=== PATIENT | male | born 1990 | race Caucasian/White ===

== ENCOUNTER 2020-12-31 19:49 | Emergency (ER) | payer OTHER, SELFPAY ==
[2020-12-31] VITALS (16 sets, daily range): BP systolic 121–159; BP diastolic 68–88; PULSE 75–107; RESP 10–25; TEMP 36.3; O2SAT 96–98
--- NOTE | 2020-12-31 19:45 | RT.EKG_ITS ---
APPROVED REPORT Exam: Resting ECG Patient Location: E HR:95 bpm ECG Measurements Heart Rate 95 AXIS MA 151 P 68 QRSd 101 QRS 84 QT 336 T 28 QTc 423 Conclusion Sinus rhythm...normal P axis, V-rate 60- 99 Normal Intervals Normal [place] Normal Electrocardiogram
[2020-12-31 20:28] LABS: Abs Immature Grans 0.02 10^3/uL (0.0-0.06); Absolute Basophil Count 0.05 10^3/uL (0.0-0.2); Absolute Eosinophil Count 0.02 10^3/uL (0.0-0.7); Absolute Lymphocyte Count 1.77 10^3/uL (1.2-3.4); Absolute Monocyte Count 0.72 10^3/uL (0.1-0.8); Absolute Neutrophil Count 4.17 10^3/uL (1.2-6.7); Basophils % 0.7; Eosinophils % 0.3; HCT 41.9 % (40.0-50.0); Immature Grans % 0.3; Lymphocytes % 26.2; MCH 31.7 pg (27.0-33.0); MCHC 35.8 % (32.0-36.0); MCV 88.6 fL (80-95); MPV 9.8 fL (8.0-11.0); Monocytes % 10.7; Neutrophils % 61.8; Nucleated RBC 0 %; Platelet Count 229 10^3/uL (130-400); RBC 4.73 10^6/uL (4.36-5.78); RDW 11.5 % (11.8-14.1); WBC 6.75 10^3/uL (4.4-10.8)
--- NOTE | 2020-12-31 20:32 | ED.GENADUL_ITS ---
Discharge Plan Disposition Patient Disposition: HOME Condition: Good Discharge Details Clinical Impression: Palpitations, Hypokalemia ED Provider: Laurent Johnson Home Meds and New Rx's Prescriptions: No Action No Known Home Meds RF: 0 Discharge Instructions Instructions: Heart Palpitations (ED), Hypokalemia (ED) Additional Instructions: You will receive a phone call from respiratory therapy for an appointment as to when to come in to have heart monitor placed. We will have you follow-up with primary care in 3 to 4 weeks after the heart monitor has been turned in and read. Care management will reach out to you to help arrange for primary care follow-up. Return to ED if you develop chest pain, fainting, shortness of breath, prolonged palpitations that do not resolve, other concerns. Referrals: Care Management [Provider Group] Medical Decision Making Patient presenting with palpitations/fast heart rate. When initially placed on monitor was sinus tachycardia at 110. Subsequently normal sinus rhythm on monitor. He is also normal sinus rhythm on EKG. Exam is unremarkable. Certainly sounds like possibility of SVT. For tonight we will check laboratory studies including TSH. If normal will refer to care management for primary care assignment and order outpatient heart monitoring. Labs look okay other than potassium being 3. Doubt this truly has anything to do with the palpitations. We will go ahead and give him some oral potassium today. Talked about dietary foods high in potassium. Will refer to respiratory for monitor placement. Will refer to care management for primary care assignment in 3 to 4 weeks once the monitor has been completed and read. Return to ED if syncope, shortness of breath, chest pain, prolonged rapid heart rate, other concerns. Lab Data Lab results reviewed: Yes I reviewed the patient's lab results. ECG Data Attestation: I personally reviewed and interpreted this ECG (s) as follows: Prior ECG tracings: not available for review Interpretation: see EKG HPI General Mode of arrival: ambulatory . Date/Time Provider Initiated Documentation: 12/31/20 20:21 . Limitations to Documentation: no limitations . Information obtained by: patient and RN notes reviewed . HPI Narrative: Patient presents to ED with complaint of fast heart rate/palpitations. Patient reports he is probably had this on and off for 1 year. Seems to be random in nature. Occurs maybe once a week and last 20 to 30 minutes. Does not seem to be triggered by anything. Tonight would not resolve and seemed worse than usual so he came in to ED. He has not had this evaluated previously. He does not have primary care. He did smoke some marijuana tonight but denies any other drugs. He felt a little lightheaded with the episode. Also made him quite anxious which may be contributed to his increased heart rate and some feeling of dyspnea. He has not been ill. He has no fever, cough, chest pain, vomiting, diarrhea, other physical complaints. Related Data Home Medications Medication Instructions Recorded Confirmed Unknown [No Known Home Meds] 05/03/15 05/03/15 Allergies Allergy/AdvReac Type Severity Reaction Status Date / Time No Known Allergies Allergy Unverified 12/31/20 19:59 General Stated Complaint: Palpitatns BRITTNEE: 3 Review of Systems Narrative: As documented in HPI otherwise negative as below. Const: no fever, chills, weakness Resp: no cough, SOB, pleuritic pain CV: no CP, diaphoresis, edema, syncope GI: no abdominal pain, nausea, vomiting, diarrhea Neuro: no headache, numbness, focal weakness, confusion PFSH Medical History (Updated 12/31/20 @ 21:10 by Laurent Johnson MD) No significant past medical history Surgical History (Updated 12/31/20 @ 20:34 by Laurent Johnson MD) Status post open reduction with internal fixation of fracture elbow Social History Smoking/Tobacco Use Status: Former Tobacco Use Smoking risk assessment performed?: Yes Alcohol Intake: current Alcohol Intake frequency: holidays/special occasions only Drug use: Socially Substance use type: marijuana Do you feel safe at home: Yes Do you feel safe in your relationship?: Yes Exam Narrative Exam Narrative: Const: WDWN male in NAD. HEENT: NC/AT. Normal facial exam. Eyes: Normal conjunctiva and sclera. Neck: Supple. Trachea midline. Lungs: Normal respiratory effort. Lungs are clear. Cor: RRR without murmur/gallop. Good radial pulses. Neuro: A+O x 3. Normal speech, mentation, gait. Cranial nerves II - XII grossly intact. No gross motor or sensory deficit. Ext: No C/C/E. No calf tenderness. Skin: Warm and dry without rash. Course Vital Signs Vital signs: Vital Signs Temperature 97.3 F L 12/31/20 19:53 Pulse 107 H 12/31/20 19:53 Respiratory Rate 16 02/20/21 19:53 Blood Pressure 159/88 H 12/31/20 19:53 Temperature 97.3 F L 12/31/20 19:53 Temperature Source Skin 12/31/20 19:53 Pulse 107 H 12/31/20 19:53 Respiratory Rate 16 12/31/20 19:53 Respiratory Effort 12/31/20 19:56 Blood Pressure 159/88 H 12/31/20 19:53 Blood Pressure Position Sitting 12/31/20 19:53 Oxygen Delivery Method Room Air 12/31/20 19:53 Oxygen Flow Rate 0 12/31/20 19:53
[2020-12-31 20:53] LABS: ALT 18 U/L (16-63); AST 14 U/L (15-37); Albumin 4.2 g/dL (3.4-5.0); Alkaline Phosphatase 104 U/L (46-116); Anion Gap 11.8 mmol/L (3-11); BUN 10 mg/dL (7-18); Bilirubin, Total 0.5 mg/dL (0.2-1.0); CO2 25.2 mmol/L (21.0-32.0); CREATININE 1.1 mg/dL (0.70-1.30); Calcium 8.5 mg/dL (8.5-10.1); Chloride 103 mmol/L (98-107); Glucose 113 mg/dL (74-106); Magnesium 1.9 mg/dL (1.8-2.4); Sodium 140 mmol/L (136-145); TSH (W/Ref FT4) 1.53 uIU/mL (0.36-3.74); Total Protein 7.9 g/dL (6.4-8.2)
[2020-12-31] MEDS: Potassium Chloride 20 MEQ TABCR 40 MEQ PO (21:08)
--- NOTE | 2021-01-03 14:57 | CMPROGNOTE_ITS ---
- If Service Date Differs Date of service: 01/03/21 Time of Service: 14:57 Care Management Progress Note Jewel is seen in the ED on 12/31/2020 for palpitations and hypokalemia. At the request of ED provider, CM coordinates a referral to Ana Cruz of [facility], on-call provider, to assist Jewel in obtaining a follow up appointment and in establishing care with a PCP.
== END 2020-12-31 21:40 | disposition home or self-care (01) ==
PROVIDERS: Emergency Provider Emergency Medicine
DX: R00.2 Palpitations (principal); E87.6 Hypokalemia
CPT/HCPCS: 80053; 93005; 99283; 83735; 84443; 85025; 93010

== ENCOUNTER 2021-01-03 18:56 | Emergency (ER) | payer OTHER, SELFPAY ==
--- NOTE | 2021-01-03 18:59 | W.ED.GENAD ---
Discharge Plan Disposition Patient Disposition: HOME Condition: Stable Discharge Details Clinical Impression: Palpitations, Anxiety Primary Care Provider: None,None ED Provider: Felicitas Gee Home Meds and New Rx's Prescriptions: No Action No Known Home Meds RF: 0 Discharge Instructions Instructions: Heart Palpitations (ED), Anxiety (ED) Additional Instructions: Encourage water intake. Please try to cut back on caffeine. Stop smoking marijuana. Get plenty of rest. I am concerned about your anxiety. I would like for you to discuss this with counselors, please call [phone]. I have asked that care management recheck your primary care providers again and get an appointment as soon as possible discuss your anxiety/panic attacks as well as your palpitations. I have referred you for your Holter monitor to continue to monitor your heart further. If you develop chest pain, shortness of breath, persistent palpitations or other new/worsening symptoms please seek care urgently once again. Discharge Data Discharge Date/Time-TO BE ENTERED AT DEPARTURE: 01/03/21 19:42 Medical Decision Making Patient is a pleasant 30-year-old male presenting today with chief complaint palpitations. Patient was seen here 3 days ago for the same complaint. He states that he felt the same once again with symptoms of palpitations that lasted approximately 1 hour. This was after smoking marijuana. He denies any chest pain or shortness of breath. He does not want a repeat medical work-up. Rather, patient would like to discuss potential for panic attacks. Patient reports he has multiple family members with panic attacks and believes this may be driving source of his symptoms. He would like to ensure that he has prompt follow-up with primary care as well as Holter monitor. These things have been ordered last time but have not yet been scheduled for the patient. Based on history, referral for primary care was sent but initially, it sounds like they were planning on a follow-up after the Holter monitor was completed. However, the patient is feeling very anxious this time and like to be able to have follow-up sooner. Dr. Johnson had also ordered a Holter monitor but this has not been set up as of yet. EKG was seen and reviewed by Dr. Jenkins. Patient normal sinus rhythm with a rate of 89, no acute ischemic changes noted. On exam, patient is resting comfortably. Unremarkable cardiac exam. Patient does appear slightly anxious but otherwise normal psychiatric exam, no suicidal ideation. At this time, patient reports symptoms are completely subsided. Symptoms came on when he is feeling anxious after smoke marijuana. He states that he felt his heart was fast and felt like he did the other day. Denies any chest pain or shortness of breath. Symptoms subsided when he calmed down coming into the hospital. He is denying any symptoms currently. He states that the symptoms have been intermittent since he moved back to the area last March and he feels they are primarily brought on by times of stress. Patient is questioning if this could be panic attack. He has not been formally diagnosed with anxiety or panic attacks historically. He is requesting that the referral to be moved up but does not want any further medical intervention at this time. I have asked the patient be seen by primary care team as possible, this message has been sent to care management. I have also asked that they follow-up with a Holter monitor order that was placed by Dr. Johnson on his last visit to ensure that this can be placed if it is possible. Return precautions were discussed. All his questions and concerns were addressed and he is in agreement with this plan. HPI General Mode of arrival: ambulatory. Date/Time Provider Initiated Documentation: 01/03/21 18:59. Limitations to Documentation: no limitations. Information obtained by: patient, RN notes reviewed and old records reviewed. History of Present Illness 30 year old M presents to the emergency department with the chief complaint of palpitations, described as moderate and similar to prior episodes, Quality is described as other (denies pain), and is localized to the chest. Patient reports no radiation. Patient started experiencing this month(s) (intermittent, has had since moving here last March) and it has been intermittent and now resolved. No relieving factors improve symptom(s), Other factors that worsen symptoms (marijuana) . Patient notes denies chest pain, cough, fever/chills, loss of appetite, nausea/vomiting, shortness of breath and weakness. Patient did receive the following treatments prior to arrival, none Related Data Home Medications Medication Instructions Recorded Confirmed Unknown [No Known Home Meds] 05/03/15 01/03/21 Allergies Allergy/AdvReac Type Severity Reaction Status Date / Time No Known Allergies Allergy Unverified 12/31/20 19:59 General BRITTNEE: 3 Review of Systems Constitutional Constitutional: Reports as per HPI, Denies chills, Denies fever(s), Denies headache(s), Denies lethargy and Denies poor appetite Eyes Eyes: Denies change in vision ENT Ears, Nose, Mouth, and Throat: Denies dizziness and Denies headache(s) Cardiovascular Cardiovascular: Reports as per HPI, Denies chest pain at rest, Denies chest pain with activity, Denies lightheadedness, Denies radiating jaw, neck or arm pain, Reports palpitations, Denies dyspnea and Denies dyspnea on exertion Respiratory Respiratory: Reports as per HPI, Denies chest congestion, Denies cough, Denies pain on inspiration, Denies pain with cough, Denies dyspnea, Denies dyspnea on exertion and Denies wheezing Gastrointestinal Gastrointestinal: Reports as per HPI, Denies abdominal pain, Denies diarrhea, Denies nausea and Denies vomiting Genitourinary Genitourinary: Denies system reviewed and no additional complaints, except as documented (denies change in urinary habits) Musculoskeletal Musculoskeletal: Reports as per HPI and Denies back pain Integumentary/Breasts Skin/Breast: Reports as per HPI and Denies rash Neurologic Neurologic: Reports as per HPI, Denies dizziness and Denies headache(s) Endocrine Endocrine: Reports palpitations Allergic/Immunologic Allergic/Immunologic: Denies wheezing [facility] Medical History (Updated 01/03/21 @ 19:39 by PIYUSH Eden) No significant past medical history Surgical History Status post open reduction with internal fixation of fracture elbow Social History Smoking/Tobacco Use Status: Former Tobacco Use Smoking risk assessment performed?: Yes Alcohol Intake: current Alcohol Intake frequency: holidays/special occasions only Drug use: Daily Substance use type: marijuana Do you feel safe at home: Yes Do you feel safe in your relationship?: Yes Exam Const General: cooperative, healthy appearing, comfortable, no acute distress and well developed Nutritional Appearance: average body habitus and well nourished Orientation: alert, awake and oriented x3 Chest Chest: normal inspection of the chest, normal palpation of entire chest wall and no crepitus Resp Effort & Inspection: normal respiratory effort, able to speak in complete sentences and no respiratory distress Auscultation: clear to auscultation bilaterally, no rales, no rhonchi and no wheezes Cardio Rate: regular rate Rhythm: regular rhythm Heart Sounds: S1 normal and S2 normal Skin General skin exam: no rashes or lesions noted Trauma: no lacerations or abrasions Neuro General: patient alert, patient awake and patient oriented x3 Cognition: normal cognition Speech: speech normal Gait: normal gait Extrem General: normal to inspection, capillary refill normal, no pedal edema, no calf tenderness and normal gait Psych Appearance: grossly normal and well kempt Mental Status: mental status grossly normal Speech and Movement: speech and movement normal
--- NOTE | 2021-01-03 19:00 | RT.EKG_ITS ---
APPROVED REPORT Exam: Resting ECG Patient Location: E HR:89 bpm ECG Measurements Heart Rate 89 AXIS ME 150 P 66 QRSd 100 QRS 85 QT 336 T 52 QTc 409 Conclusion Sinus rhythm...normal P axis, V-rate 60- 99. No STEMI. No change from previous. I have reviewed and interpreted ECG and agree with software generated interpretation.
[2021-01-03 19:02] VITALS: PULSE 91; RESP 18; TEMP 36.8; O2SAT 99
[2021-01-03 19:09] VITALS: BP 129/77
[2021-01-03 19:32] VITALS: BP 119/69; PULSE 76; RESP 18; O2SAT 99
--- NOTE | 2021-01-04 05:51 | NUR.NOTE ---
Nursing Note: Referral faxed to care management [phone] 01/04/21 libl
== END 2021-01-03 19:42 | disposition home or self-care (01) ==
PROVIDERS: Emergency Provider Physician Assistant
DX: R00.2 Palpitations (principal); F41.9 Anxiety disorder, unspecified
CPT/HCPCS: 93005; 99283; 93010

== ENCOUNTER 2021-01-05 19:29 | Outpatient (CLI) | payer OTHER, SELFPAY ==
--- NOTE | 2021-01-26 09:22 | ZIOP_ITS ---
Date of service: 01/26/21 Time of Service: 09:22 14 Day Therapist Respiratory Referring Provider:: Ana Cruz Indications:: Palpitations Note: This was a 14-day monitor reportedly ordered for symptoms of palpitations. Predominant rhythm was sinus with an average heart rate of 77. Minimum was 44 and maximum 173 There were no significant atrial or ventricular dysrhythmias Rhythm labeled atrial flutter appear to be sinus with artifact, not atrial flutter Patient symptoms corresponded to sinus tachycardia rate 110
== END 2021-01-05 19:30 | disposition home or self-care (01) ==
PROVIDERS: Visit Provider Nurse Practitioner Family
DX: R00.2 Palpitations (principal)
CPT/HCPCS: 93246

== ENCOUNTER 2021-02-06 17:14 | Outpatient (REF) | payer OTHER, SELFPAY ==
[2021-02-06 19:16] LABS: Anion Gap 9.8 mmol/L (3-11); BUN 18 mg/dL (7-18); CO2 29.2 mmol/L (21.0-32.0); Calcium 9.2 mg/dL (8.5-10.1); Chloride 103 mmol/L (98-107); Glucose 68 mg/dL (74-106); Potassium 4.3 mmol/L (3.5-5.1); Sodium 142 mmol/L (136-145)
== END 2021-02-06 17:15 | disposition home or self-care (01) ==
LOC: NCHCN 17:14
PROVIDERS: PCP Nurse Practitioner Family; Visit Provider Nurse Practitioner Family
DX: Z00.00 Encounter for general adult medical examination without abnormal findings (principal); Z13.228 Encounter for screening for other metabolic disorders
CPT/HCPCS: 80048

== ENCOUNTER 2021-07-06 16:16 | Outpatient (REF) | payer OTHER, SELFPAY ==
[2021-07-06 20:06] LABS: TSH (W/Ref FT4) 1.05 uIU/mL (0.36-3.74)
[2021-07-10 10:34] LABS: HIV-1/2 Ag & Ab Screen Negative (Negative)
[2021-07-10 11:02] LABS: Hepatitis C Ab w Rflx HCV PCR Negative (Negative)
[2021-07-10 11:34] LABS: Syphilis Serology (RPR) Negative (Negative)
[2021-07-10 15:12] LABS: Chlamydia Result Negative (Negative); GC Result Negative (Negative)
== END 2021-07-06 16:17 | disposition home or self-care (01) ==
LOC: NCHCN 16:16
PROVIDERS: PCP Nurse Practitioner Family; Visit Provider Nurse Practitioner Family
DX: Z00.00 Encounter for general adult medical examination without abnormal findings (principal); Z11.3 Encounter for screening for infections with a predominantly sexual mode of transmission; F41.9 Anxiety disorder, unspecified; Z83.49 Family history of other endocrine, nutritional and metabolic diseases
CPT/HCPCS: 86803; 87389; 87491; 87591; 84443; 86592